=== PATIENT | female | born 1990 | race African-American/Black ===

== ENCOUNTER 2019-08-02 15:19 | Emergency (ER) | payer OTHER ==
[~2019-08-02] VITALS: Ht 157.5 cm; Wt 61.2 kg
[2019-08-02] MEDS ORDERED: PNV 29-1 TABLE1 EACH PO (15:34)
[2019-08-02 15:40] LABS: URINE BILIRUBIN NEGATIVE (Negative); URINE BLOOD 2+ (Negative); URINE CLARITY CLEAR; URINE COLOR YELLOW; URINE GLUCOSE-RANDOM* NEGATIVE (Negative); URINE KETONES TRACE (Negative); URINE LEUKOCYTES-REFLEX NEGATIVE (Negative); URINE NITRITE-REFLEX NEGATIVE (Negative); URINE PROTEIN (DIPSTICK) NEGATIVE (Negative); URINE SPECIFIC GRAVITY 1.025 (1.005-1.035); URINE UROBILINOGEN 0.2 E.U./dl (0.2-1.0)
[2019-08-02 16:37] LABS: BACTERIA-REFLEX 1-9 Few /HPF (None Seen); CASTS None Seen /LPF (None Seen); CRYSTALS None Seen /LPF (None Seen); SQUAMOUS 4-10 Moderate /LPF (0-3); URINE RBC None Seen /HPF (0-2); URINE WBC-REFLEX None Seen /HPF (0-5)
[2019-08-02 17:24] LABS: ABSOLUTE NEUTROPHILS 6.7 thou/uL (1.4-8.2); BASOPHILS 0.7 % (0.0-2.0); EOSINOPHILS 0.9 % (0.0-3.0); HEMATOCRIT 44.5 % (37.0-47.0); HEMOGLOBIN 14.6 gm/dL (12.0-15.0); LYMPHOCYTES 19.2 % (24.0-44.0); MCH 29.5 pg (26.0-34.0); MCHC 32.8 g/dL (28.0-37.0); MCV 89.9 fL (80.0-100.0); MONOCYTES 7.1 % (1.0-8.0); PLATELET COUNT 234 thou/uL (150-400); POLYS 72.1 % (36.0-66.0); RBC 4.95 mil/uL (4.20-5.00); RDW 14.9 % (10.5-14.5); WBC 9.2 thou/uL (4.0-11.0)
[2019-08-02 17:33] LABS: CALCIUM 9.1 mg/dL (8.5-10.1); CREATININE 0.7 mg/dL (0.6-1.0); POTASSIUM 3.7 mmol/L (3.5-5.1)
[2019-08-02 17:39] LABS: ALBUMIN 3.7 g/dL (3.4-5.0); TOTAL BILIRUBIN 0.9 mg/dL (0.2-1.0)
[2019-08-02 17:58] VITALS: BP 99/63
== END 2019-08-02 17:58 | disposition home or self-care (01) ==
LOC: ER 15:19
PROVIDERS: Nurse Practitioner Family
DX: N94.6 Dysmenorrhea, unspecified (principal); Z79.899 Other long term (current) drug therapy